=== PATIENT | female | born 1975 | race Caucasian/White ===

== ENCOUNTER 2018-07-14 18:08 | Emergency (ER) | payer OTHER ==
[2018-07-14 18:27] VITALS: BP 108/72
--- NOTE | 2018-07-14 18:46 | ED ---
Skin Complaint - HPI Summary HPI Summary: 42 yr old female with rash under arm pits. She shaves under her arms with electric razor. She developed a dry itchy area right axilla 3 weeks ago, and hydrocortisone has not make this better. She now has two areas in the left axilla. No drainage. No other complaints. - History of Current Complaint Chief Complaint: UCRash Time Seen by Provider: 07/14/18 18:35 Stated Complaint: RASH UNDER ARMS Hx Last Menstrual Period: 04/20/15 Pain Intensity: 3 - Allergy/Home Medications Allergies/Adverse Reactions: Allergies Allergy/AdvReac Type Severity Reaction Status Date / Time No Known Allergies Allergy Verified 07/14/18 18:28 PMH/Surg Hx/FS Hx/Imm Hx Cardiovascular History: Denies: Hx Pacemaker/ICD Sensory History: Denies: Hx Hearing Aid Psychiatric History: Denies: Hx Panic Disorder - Surgical History Surgery Procedure, Year, and Place: tonsillectomy 03/2015 Infectious Disease History: No Infectious Disease History: Reports: Hx Shingles Denies: Traveled Outside the [place] in Last 30 Days - Family History Known Family History: Positive: Diabetes - mother, Respiratory Disease - mother - Social History Occupation: Employed Full-time Alcohol Use: Occasionally Substance Use Type: Reports: None Smoking Status (MU): Former Smoker Review of Systems Constitutional: Negative Positive: Rash - axilla bilateral All Other Systems Reviewed And Are Negative: Yes Physical Exam Triage Information Reviewed: Yes Vital Signs On Initial Exam: Initial Vitals Temp Pulse Resp BP Pulse Ox 98.9 F 64 16 108/72 99 07/14/18 18:24 07/14/18 18:24 07/14/18 18:24 07/14/18 18:24 07/14/18 18:24 Vital Signs Reviewed: Yes Appearance: Positive: Well-Appearing, No Pain Distress Skin: Positive: Other - there is one patch and then two patches of dry, red skin with slight raised boarder in the right axilla and left axilla respectively , and about the diameter of 1 cm. Consistent with tinea. Diagnostics - Vital Signs Vital Signs Temp Pulse Resp BP Pulse Ox 07/14/18 18:24 98.9 F 64 16 108/72 99 - Laboratory Lab Statement: Any lab studies that have been ordered have been reviewed, and results considered in the medical decision making process. Course/Dx - Course Course Of Treatment: 42 yr old with tinea corporis - Diagnoses Provider Diagnoses: Tinea corporis Discharge - Sign-Out/Discharge Documenting (check all that apply): Patient Departure All imaging exams completed and their final reports reviewed: No Studies - Discharge Plan Condition: Good Disposition: HOME Patient Education Materials: Tinea Corporis (ED) Referrals: Sheila Khan MD [Primary Care Provider] - 1 Week Additional Instructions: apply miconazole 2 percent cream to the areas twice a day for a week. - Billing Disposition and Condition Condition: GOOD Disposition: Home
== END 2018-07-14 18:48 | disposition home or self-care (01) ==
LOC: UCCORT 18:08
DX: B35.4 Tinea corporis (principal); Z87.891 Personal history of nicotine dependence
CPT/HCPCS: 99211; G0463

== ENCOUNTER 2018-08-05 17:45 | Emergency (ER) | payer OTHER ==
[2018-08-05 18:28] VITALS: BP 112/66
--- NOTE | 2018-08-05 18:35 | UC ---
UC General HPI - HPI Summary HPI Summary: pt is c/o a 5-6 week hx of an itchy-burning rash to both armpits. she was seen here and has tx with an otc antifungal cream with no relief. she thinks the spots are the same but worse. no hx mrsa or DM. she has been using her electric shaver after cleaning it and apply a spray deodorant. she has no fever, acute illness and denies any other rash. she has no other complaints. - History of Current Complaint Chief Complaint: UCSkin Stated Complaint: RASH UNDERARMS Time Seen by Provider: 08/05/18 18:27 Hx Obtained From: Patient Hx Last Menstrual Period: 04/20/15 Timing: Constant Pain Intensity: 3 Associated Signs & Symptoms: Negative: Fever - Allergy/Home Medications Allergies/Adverse Reactions: Allergies Allergy/AdvReac Type Severity Reaction Status Date / Time No Known Allergies Allergy Verified 08/05/18 18:27 PMH/Surg Hx/FS Hx/Imm Hx - Additional Past Medical History Additional PMH: acne - Surgical History Surgical History: Yes Surgery Procedure, Year, and Place: tonsillectomy 03/2015. [facility] - Family History Known Family History: Positive: Diabetes - mother, Respiratory Disease - mother - Social History Alcohol Use: Rare Substance Use Type: None Smoking Status (MU): Former Smoker - Immunization History Most Recent Influenza Vaccination: [id number] Review of Systems All Other Systems Reviewed And Are Negative: No Constitutional: Negative: Fever, Chills Skin: Positive: Rash Musculoskeletal: Negative: Arthralgia Physical Exam Triage Information Reviewed: Yes Appearance: Well-Appearing Vital Signs: Initial Vital Signs Temp 99.8 F 08/05/18 18:21 Pulse 68 08/05/18 18:21 Resp 18 08/05/18 18:21 BP 112/66 08/05/18 18:21 Pulse Ox 99 08/05/18 18:21 Vital Signs Reviewed: Yes Eyes: Positive: Conjunctiva Clear Neck: Positive: Supple Respiratory: Positive: No respiratory distress Musculoskeletal: Positive: ROM Intact, No Edema Neurological: Positive: Alert Psychological: Positive: Age Appropriate Behavior Skin Exam: Normal Skin: Positive: Rashes - both axilla have some slightly raised hyperpigmented areas with a dry and somewhat fine scaley surface. no odor drainage or axillary adenopathy. Course/Dx - Differential Dx - Multi-Symptom Differential Diagnoses: Other - most likely fungal and secondary bacterial infection possible. will d/c shaving, deodorant, topical otc antifungal cream and aggressive washing with soap. 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 - Diagnoses Provider Diagnosis: Rash Discharge - Sign-Out/Discharge Documenting (check all that apply): Patient Departure All imaging exams completed and their final reports reviewed: No Studies - Discharge Plan Condition: Stable Disposition: HOME Prescriptions: Cephalexin CAP* [Keflex CAP*] 500 mg PO TID 10 Days #30 cap Nystatin TOP POWDER* 1 applic TOPICAL TID 14 Days #1 btl Patient Education Materials: Skin Yeast Infection (ED) Referrals: Pablo Beckham MD [Medical Doctor] - As Soon As Possible Additional Instructions: STOP THE ANTI FUNGAL CREAM. STOP THE DEODORANT. AVOID SOAPY SCRUBBING. STOP SHAVING, IF YOU MUST SHAVE BE GENTLE WITH A SINGLE USE DISPOSABLE SHAVER. - Billing Disposition and Condition Condition: STABLE Disposition: Home
== END 2018-08-05 18:54 | disposition home or self-care (01) ==
LOC: UCCORT 17:45
DX: R21 Rash and other nonspecific skin eruption (principal); Z87.891 Personal history of nicotine dependence
CPT/HCPCS: 99212; G0463

== ENCOUNTER 2018-08-18 17:46 | Emergency (ER) | payer OTHER ==
[2018-08-18 18:12] VITALS: BP 131/68
--- NOTE | 2018-08-18 18:55 | UC ---
Skin Complaint HPI - HPI Summary HPI Summary: 42-year-old woman comes in with a chief complaint of a rash underneath her armpits. This started couple months ago. She is in the [employer] right now and Saturday through Saturday she's there from 6 in the morning to 6 PM therefore she is not able to see a agriculture inspector as there are no agriculture inspector available outside of these hours. She initially treated with an antifungal topical which did not help. She stopped using any deodorants. Most recently she was on nystatin and oral cephalexin. She did have some minimal improvement she believes the powder helped more than anything else. She was seen here both times for these treatments. No pustules. No fevers feels well otherwise. - History of Current Complaint Chief Complaint: UCRash Time Seen by Provider: 08/18/18 18:32 Stated Complaint: SKIN COMPLAINT Hx Last Menstrual Period: 04/20/15 Pain Intensity: 0 - Allergy/Home Medications Allergies/Adverse Reactions: Allergies Allergy/AdvReac Type Severity Reaction Status Date / Time No Known Allergies Allergy Verified 08/18/18 18:08 PMH/Surg Hx/FS Hx/Imm Hx Previously Healthy: Yes - Surgical History Surgical History: Yes Surgery Procedure, Year, and Place: Hysterectomy, 2017, [place]; tonsillectomy , 2015, [facility] - Family History Known Family History: Positive: Diabetes - mother, Respiratory Disease - mother - Social History Alcohol Use: Rare Substance Use Type: None Smoking Status (MU): Former Smoker - Immunization History Most Recent Influenza Vaccination: [id number] Review of Systems All Other Systems Reviewed And Are Negative: Yes Constitutional: Positive: Negative Skin: Positive: Other - SEE HPI Eyes: Positive: Negative ENT: Positive: Negative Respiratory: Positive: Negative Cardiovascular: Positive: Negative Gastrointestinal: Positive: Negative Motor: Positive: Negative Neurovascular: Positive: Negative Musculoskeletal: Positive: Negative Neurological: Positive: Negative Psychological: Positive: Negative Is Patient Immunocompromised?: No Physical Exam Triage Information Reviewed: Yes Appearance: Well-Appearing, No Pain Distress, Well-Nourished Vital Signs: Initial Vital Signs Temp 98.6 F 08/18/18 18:04 Pulse 76 08/18/18 18:04 Resp 16 08/18/18 18:04 BP 131/68 08/18/18 18:04 Pulse Ox 98 08/18/18 18:04 Vital Signs Reviewed: Yes Eye Exam: Normal Eyes: Positive: Conjunctiva Clear Neck: Positive: Supple Respiratory: Positive: No respiratory distress Musculoskeletal Exam: Normal Musculoskeletal: Positive: Strength Intact, ROM Intact Neurological Exam: Normal Neurological: Positive: Alert, Muscle Tone Normal Psychological Exam: Normal Psychological: Positive: Age Appropriate Behavior Skin: Positive: Other - RAISED PLAQUES 0.5CM - 1.5CM IN ARM PITS. NO PUSTULES. Course/Dx - Course Course Of Treatment: The rash under the patient's armpits does not appear to be hidradenitis supperativa. So far an antifungal is not helped. She was on nystatin and cephalexin. Saw some improvement with that. Plan now is to continue with the nystatin powder as it may also have a drying function. We will add topical steroid. I let the patient know that she should do a trial of this combination and if everything improved that would be wonderful. However if there was no improvement was worsening she needed to stop the steroid. At that time she would continue the nystatin and start topical clindamycin and doxycycline on milligrams by mouth twice a day. Patient's going to be in [place] until January so it is unlikely she'll be able to get in to see a agriculture inspector until February. - Diagnoses Provider Diagnosis: Rash Discharge - Sign-Out/Discharge Documenting (check all that apply): Patient Departure All imaging exams completed and their final reports reviewed: No Studies - Discharge Plan Condition: Stable Disposition: HOME Prescriptions: Clindamycin 1% TOPICAL(NF) [Cleocin-T 1% TOPICAL(NF)] 1 applic TOPICAL BID #1 btl DOXYcycline CAP(*) [DOXYcycline 100MG CAP(*)] 100 mg PO BID #20 cap Nystatin TOP POWDER* 1 applic TOPICAL TID 14 Days #1 btl Triamcinolone 0.1% Cr 15gm -NF [Triamcinolone Acetonide] 1 applic TOPICAL TID # 15 gm Patient Education Materials: Acute Rash (ED) Referrals: Sheila Khan MD [Primary Care Provider] - Pablo Beckham MD [Medical Doctor] - Donita Garcia [Medical Doctor] - Additional Instructions: FOLLOW UP WITH DERMATOLOGY. TRY THE TOPICAL NYSTATIN AND STEROID. IF NO IMPROVEMENT OR WORSE, STOP THE STEROID, CONTINUE THE NYSTATIN AND STRART THE TOPICAL CLINDAMYCIN AND ORAL DOXYCYCLINE. GET RECHECKED SOONER IF YOUR CONDITION WORSENS OR ANY QUESTIONS OR CONCERNS. - Billing Disposition and Condition Condition: STABLE Disposition: Home
== END 2018-08-18 19:05 | disposition home or self-care (01) ==
LOC: UCCORT 17:46
DX: R21 Rash and other nonspecific skin eruption (principal); Z87.891 Personal history of nicotine dependence
CPT/HCPCS: 99212; G0463